=== PATIENT | male | born 1970 | race Caucasian/White ===

== ENCOUNTER 2017-06-02 11:18 | Inpatient (IN) | payer OTHER ==
[~2017-06-02] VITALS: Ht 175.2 cm; Wt 91.2 kg
[2017-06-02 12:25] VITALS: BP 168/96
[2017-06-02 13:08] LABS: BASO % 0.5 % (0.0-1.0); EOS # 0.5 10*3/uL (0.0-0.4); EOS % 6.3 % (1.0-4.0); HEMATOCRIT 47.7 % (42.0-52.0); HEMOGLOBIN 16.2 g/dl (14.0-18.0); LYMPH # 2.8 10*3/uL (1.3-4.4); LYMPH % 33.3 % (27.0-41.0); MEAN CORPUSCULAR HGB 29.9 pg (27.0-31.0); MEAN PLATELET VOLUME 10.3 fl (9.6-12.3); MONO # 0.7 10*3/uL (0.1-1.0); MONO % 7.9 % (3.0-9.0); NEUT # 4.3 10*3/uL (2.3-7.9); NEUT % 51.8 % (47.0-73.0); PLATELET COUNT AUTOMATED 240 10*3/uL (130-400); RED BLOOD COUNT 5.42 10*6/uL (4.50-5.90); WHITE BLOOD COUNT 8.3 10*3/uL (4.8-10.8)
[2017-06-02 13:23] LABS: ALBUMIN 3.5 gm/dl (3.1-4.5); ALKALINE PHOSPHATASE 120 U/L (45-117); BUN 4 mg/dl (7-24); CHLORIDE 102 mmol/L (98-107); CREATININE 0.92 mg/dL (0.70-1.30); ETHYL ALCOHOL < 3.0 mg/dl (<3); POTASSIUM 3.6 mmol/L (3.5-5.1); SGOT/AST 129 IU/L (3-35); SGPT/ALT 225 U/L (12-78); SODIUM 141 mmol/L (136-145); TOTAL PROTEIN 8.3 gm/dL (6.4-8.2)
[2017-06-02 13:53] LABS: BILIRUBIN NEGATIVE (NEGATIVE); BLOOD NEGATIVE (NEGATIVE); CLARITY CLEAR (CLEAR); COLOR YELLOW (YELLOW); GLUCOSE NEGATIVE (NEGATIVE); KETONE NEGATIVE (NEGATIVE); LEUKO ESTERASE NEGATIVE (NEGATIVE); NITRITE NEGATIVE (NEGATIVE); SPECIFIC GRAVITY 1.015 (1.005-1.030); UROBILINOGEN 0.2 E.U./dl (0.2-1.0)
[2017-06-02 14:00] LABS: URINE AMPHETAMINES < 1000 (1000ng/ml); URINE BARBITURATES < 200 (200ng/ml); URINE BENZODIAZEPINES < 200 (200ng/ml); URINE CANNABINOIDS (THC) < 50 (50ng/ml); URINE COCAINE > 300 (300ng/ml); URINE METHADONE < 300 (300ng/ml); URINE OPIATES > 300 (300ng/ml)
[2017-06-02 14:03] LABS: URINE PHENCYCLIDINE < 25 (25ng/ml)
[2017-06-02 14:16] LABS: BACTERIA 1+; CALCIUM OXALATE CRYSTALS TRACE; MUCOUS TRACE; RBC 0-2 rbc/hpf (0-2)
[2017-06-02 16:00] VITALS: BP 152/88
[2017-06-03] VITALS (7 sets, daily range): BP systolic 133–168; BP diastolic 58–97
[2017-06-03 06:10] LABS: HEPATITIS B SURFACE AG Negative (Negative)
[2017-06-03 07:24] LABS: HEPATITIS C VIRUS ANTIBODY >11.0 s/co (0.0-0.9)
[2017-06-04] VITALS: BP 165/83
[2017-06-04 07:37] LABS: SGOT/AST 107 IU/L (3-35); SGPT/ALT 192 U/L (12-78)
[2017-06-04 08:00] VITALS: BP 129/73
[2017-06-04 16:00] VITALS: BP 133/95
[2017-06-04 20:00] VITALS: BP 146/93
[2017-06-05] VITALS: BP 138/91
[2017-06-05 08:00] VITALS: BP 105/69
[2017-06-05] MEDS ORDERED: CLINDAMYCIN HC300 MG PO (12:11)
[2017-06-05] MEDS ORDERED: LISINOPRIL10 M1 PO (12:11)
[2017-06-05] MEDS ORDERED: ATARAX,VISTARIL50 MG PO (12:14)
[2017-06-05] MEDS ORDERED: ZOFRAN 4 MG ED2 TAB PO (12:14)
== END 2017-06-05 13:00 | disposition home or self-care (01) | DRG 897 ==
LOC: 5E 11:18
PROVIDERS: Family Medicine; Internal Medicine
DX: F11.23 Opioid dependence with withdrawal (principal); F12.10 Cannabis abuse, uncomplicated; L03.113 Cellulitis of right upper limb; F14.10 Cocaine abuse, uncomplicated; R74.0 Nonspecific elevation of levels of transaminase and lactic acid dehydrogenase [LDH]; I10 Essential (primary) hypertension; R76.8 Other specified abnormal immunological findings in serum; Z79.899 Other long term (current) drug therapy